=== PATIENT | male | born 1950 | race Caucasian/White ===

== ENCOUNTER → 2024-04-10 07:31 | Outpatient (REF) | payer OTHER, SELFPAY | LOC: EMG 07:31 | PROVIDERS: ATTENDING PHYSICIAN Physician Assistant | DX: G62.9 Polyneuropathy, unspecified (principal); R20.0 Anesthesia of skin; R20.2 Paresthesia of skin | CPT/HCPCS: 95886; 95913 ==

== ENCOUNTER 2024-06-13 05:56 | Day surgery (SDC) | payer OTHER, SELFPAY ==
[2024-06-13 06:10] VITALS: BMI 27.8
[2024-06-13 06:20] VITALS: BP 162/85
[2024-06-13 06:28] VITALS: BMI 27.8
[2024-06-13] MEDS: TYLENOL 1000 MG PO (06:33)
[2024-06-13] MEDS: NORMOSOL-R/PLASMALYTE-A 1000 IV (06:34)
--- NOTE | 2024-06-13 07:26 | W.SUR.PREOP ---
Pre-Operative Surgical Note
-
I have examined this patient prior to the performance of the scheduled procedure.
The patient's condition is unchanged from the time of the current History and
Physical and the patient is able to undergo the scheduled procedure.
[2024-06-13 08:13] VITALS: BP 126/66
[2024-06-13 08:15] VITALS: BP 112/64
--- NOTE | 2024-06-13 08:20 | W.IMMPOSTOP ---
Surgical Immed Post Op Note
-
Primary Surgeon: Anival Phillips MD
Assisting Surgeon: None
Pre-op Diagnosis: Bilateral lower extremity muscle weakness
Post-op Diagnosis: Same
Procedure Performed: Right lower extremity (vastus lateralis) muscle biopsy
Anesthesia Type: General
Specimen / Cultures:
Right lower extremity (vastus lateralis) muscle biopsy x2 (with muscle on stretch and relaxed)
Estimated Blood Loss: 1 cc
Complications: [None]
Operative Findings: A 1.5 x 0.5 cm piece of the vastus lateralis muscle was isolated on stretch between a clamp and sent fresh. An additional 1 x 0.5 cm piece of vastus lateralis muscle was also isolated and sent as well.
--- NOTE | 2024-06-13 08:27 | OR.RPT ---
Operative Report
Operative Report
Patient Name: Ventura Flores
: 1950
Date of Operation: 06/13/2024
Preoperative Diagnosis: Bilateral lower extremity muscle weakness
Postoperative Diagnosis: Same
Procedure(s):
Right lower extremity (vastus lateralis) muscle biopsy
Surgeon(s):
Dr. Phillips
Glove Turner(s):
GENESIS Davis
Anesthesia: MAC
Estimated Blood Loss: 1 cc
Urine Output: None
Drains/Lines/Implants: None
Specimen / Cultures:
Right lower extremity (vastus lateralis) muscle biopsy x2 (with muscle on stretch and relaxed)
Indication for surgery:
This is a 73-year-old male with progressive, proximal, bilateral lower extremity weakness of unclear etiology. General surgery was consulted to obtain a muscle biopsy for histopathologic evaluation. After discussion of risk benefits and
alternatives he elected and was consented for surgery.
Operative Findings: A 1.5 x 0.5 cm piece of the vastus lateralis muscle was isolated on stretch between a clamp and sent fresh. An additional 1 x 0.5 cm piece of vastus lateralis muscle was also isolated and sent as well.
Details of the operation:
The patient was brought to the operating room a placed in the supine position. After appropriate sedation by anesthesia, the area of the right lower extremity was prepped and draped in the usual fashion. After infiltrating the area with 1%
lidocaine with epinephrine, a linear incision over natural skin line was made over the lateral right lower extremity over the vastus lateralis muscle. The incision was carried down through the subcutaneous tissue. The fascia was identified and
opened using a 15 blade. The muscle fibers of the vastus lateralis were identified and isolated in the direction of travel a business services sales representative piece was isolated on stretch using a specimen clamp. The proximal and distal ends of the muscle fiber
bundle was tied off with 3-0 Vicryl ties and the specimen was removed. An additional piece of muscle was obtained not on stretch. Both pieces were placed in gauze with 4 cc of saline and sent fresh to pathology. The cavity was irrigated and
hemostasis was achieved. The fascia was closed with a running Vicryl suture. The dermis was then approximated using interrupted 3-0 Vicryl sutures. The skin was closed with Dermabond. All counts were correct at the end of procedure. The patient
was then transferred to [facility] for recovery.
I was the attending physician and performed the procedure with assistance from the UND[employer]UNTER above. I was present for all portions of the case
Anival Phillips MD
[2024-06-13 08:30] VITALS: BP 126/74
[2024-06-13 08:45] VITALS: BP 139/77
[2024-06-13 09:00] VITALS: BP 139/81
== END 2024-06-13 09:05 | disposition home or self-care (01) ==
LOC: SDS 05:56
PROVIDERS: ATTENDING PHYSICIAN Surgery
DX: G72.41 Inclusion body myositis [IBM] (principal)
CPT/HCPCS: 20205

== ENCOUNTER → 2025-08-22 15:03 | Outpatient (REF) | payer OTHER, SELFPAY | LOC: RAD 15:03 | PROVIDERS: ATTENDING PHYSICIAN Physician Assistant | DX: M79.671 Pain in right foot (principal); M79.89 Other specified soft tissue disorders | CPT/HCPCS: 73630 ==